=== PATIENT | male | born 1945 | race Caucasian/White ===

== ENCOUNTER 2020-10-26 | Emergency (ER) | payer MEDICARE ==
[~2020-10-26] MED LIST: AMOXICILLIN500 MG PO; ASPIRIN81 MG; BENADRYL25 MG PO; C 250 PO; CELEXA10 MG PO; DIOVAN160 MG; FISH OIL1000 MG; HYDROCHLOROTH12.5 M1 OR; LOVENOX30 MG/0.3 SC; MEDDOSEPAK PO; METOPROLOL PO; MULTI VIT PO; NORCO1 TA1 PO; PLAVIX75 MG PO; ROBITUSSIN AC10 ML PO
[2020-10-26] MEDS ORDERED: PLAVIX75 MG PO (15:35)
[2020-10-26] MEDS ORDERED: DIOVAN80 MG PO (15:35)
[2020-10-26] MEDS ORDERED: NORVASC5 M1 PO (15:35)
[2020-10-26] MEDS ORDERED: ZOLOFT25 MG PO (15:35)
[2020-10-26] MEDS ORDERED: PRAVASTATIN20 MG PO (15:35)
[2020-10-26] MEDS ORDERED: METOPROL TAR25 MG PO (15:35)
[2020-10-26] MEDS ORDERED: ZOLOFT100 MG PO (15:36)
== END 2020-10-26 15:30 | disposition home or self-care (01) ==
DX: S51.812A Laceration without foreign body of left forearm, initial encounter (principal); I10 Essential (primary) hypertension; E78.5 Hyperlipidemia, unspecified; W01.0XXA Fall on same level from slipping, tripping and stumbling without subsequent striking against object, initial encounter; Y92.009 Unspecified place in unspecified non-institutional (private) residence as the place of occurrence of the external cause; Z79.02 Long term (current) use of antithrombotics/antiplatelets; Z86.73 Personal history of transient ischemic attack (TIA), and cerebral infarction without residual deficits

== ENCOUNTER 2023-08-01 15:02 | Emergency (ER) | payer OTHER, MEDICARE ==
[2023-08-01] VITALS (7 sets, daily range): BP systolic 147–173; BP diastolic 80–142
[~2023-08-01] VITALS: Ht 185.4 cm; Wt 95.6 kg
[~2023-08-01 15:02] MED LIST changes: +DIOVAN80 MG PO; +METOPROL TAR25 MG PO; +NORVASC5 M1 PO; +PRAVASTATIN20 MG PO; +ZOLOFT100 MG PO; +ZOLOFT25 MG PO
== END 2023-08-01 18:39 | disposition home or self-care (01) | DRG 999 ==
LOC: ED 15:02
PROC: 0RSXXZZ Reposition Left Finger Phalangeal Joint, External Approach (ICD-10-PCS; principal; 2023-08-01)
PROC: 2W3DX1Z Immobilization of Left Lower Arm using Splint (ICD-10-PCS; 2023-08-01)
DX: S63.285A Dislocation of proximal interphalangeal joint of left ring finger, initial encounter (principal); S52.515A Nondisplaced fracture of left radial styloid process, initial encounter for closed fracture; S61.215A Laceration without foreign body of left ring finger without damage to nail, initial encounter; S00.93XA Contusion of unspecified part of head, initial encounter; S40.012A Contusion of left shoulder, initial encounter; S40.022A Contusion of left upper arm, initial encounter; S50.12XA Contusion of left forearm, initial encounter; I10 Essential (primary) hypertension; E78.5 Hyperlipidemia, unspecified; W10.8XXA Fall (on) (from) other stairs and steps, initial encounter; Y92.028 Other place in mobile home as the place of occurrence of the external cause; Z86.73 Personal history of transient ischemic attack (TIA), and cerebral infarction without residual deficits; Z79.02 Long term (current) use of antithrombotics/antiplatelets